=== PATIENT | male | born 1940 | race Native Hawaiian/Other Pacific Islander ===

== ENCOUNTER 2018-10-10 07:31 | Day surgery (SDC) | payer OTHER ==
[~2018-10-10] VITALS: Ht 30.5 cm; Wt 0.5 kg
== END 2018-10-10 08:50 | disposition home or self-care (01) ==
LOC: OR 07:31
PROC: 3E0R33Z Introduction of Anti-inflammatory into Spinal Canal, Percutaneous Approach (ICD-10-PCS; principal; 2018-10-10)
PROC: B01BYZZ Fluoroscopy of Spinal Cord using Other Contrast (ICD-10-PCS; 2018-10-10)
DX: M51.16 Intervertebral disc disorders with radiculopathy, lumbar region (principal)
CPT/HCPCS: J1020